=== PATIENT | male | born 1990 | race African-American/Black ===

== ENCOUNTER 2020-05-04 13:38 | Inpatient (IN) | payer MEDICAID ==
[2020-05-04] VITALS (7 sets, daily range): BP systolic 91–109; BP diastolic 53–69
[~2020-05-04] VITALS: Ht 185.4 cm; Wt 108.5 kg
[~2020-05-04 13:38] MED LIST: etomidate 2mg/ml inj. ONE; sod chloride 0.9% 10ml flush syringe IV ONE
[2020-05-04] MEDS ORDERED: MIDAZolam 5mg/ml 2ml vial IV STA (13:48)
[2020-05-04] MEDS ORDERED: propofol 1000mg/100ml bottle 100 ML IV SCH (13:49)
[2020-05-04] MEDS ORDERED: MIDAZolam inj 50 MG in normal saline 50ml IV soln 40 ML IV SCH (13:55)
--- NOTE | 2020-05-04 13:55 | NUR ---
pt arrives via gurney unresponsive by ems bvm in process, 4 of narcan was ineffective, presents hypotensive. dr moore intubated with a mac 4 blade and an 8 tube, 24 at the teeth. quad 4 central line placed
--- NOTE | 2020-05-04 13:56 | NUR ---
40 OF ETOMIDATE @1354 100 OF ROCURONIUM @1355 5MG OF VERSED WERE GIVEN FOR INTUBATION, VERSED DRIP WAS STARTED
[2020-05-04] MEDS ORDERED: midazolam 100mg in NS 100ml 100 ML IV SCH (14:05)
[2020-05-04 14:06] LABS: ABG BASE EXCESS 1.7 mmol/L (-2.0-2.0); ABG HCO3 27.7 mmol/L (22.0-26.0); ABG OXYGEN SATURATION 92.2 % (94-97); ABG PCO2 (T) 49.5 mmHg (35.0-48.0); ABG PO2 (T) 67.9 mmHg (75.0-100.0); ALLEN'S TEST POSITIVE; FCOHb 1.2 % (0.0-3.9); FLOW 15 L/min; FMetHb 0.1 % (0.0-1.5); PATIENT TEMPERATURE 37.1; TOTAL HEMOGLOBIN 13.8 G/dl (14.0-18.0)
[2020-05-04 14:29] LABS: TRIGLYCERIDES 104 MG/DL (20-135)
[2020-05-04] MEDS ORDERED: propofol 1000mg/100ml bottle 100 ML IV ONE (14:45)
--- NOTE | 2020-05-04 14:54 | NUR ---
[phone]
--- NOTE | 2020-05-04 14:55 | NUR ---
PT NOT RESPONDING TO VERSED, ORDERED PROPOFOL, PROPOFOL STARTED PER MED ORDER
[2020-05-04 14:58] LABS: CLARITY,URINE CLEAR (Clear); COLOR,URINE YELLOW (Yellow); GLUCOSE, URINE NEGATIVE (Neg); KETONES,URINE NEGATIVE (Neg); LEUKOCYTE ESTERASE ,URINE NEGATIVE (Neg); NITRITES, URINE NEGATIVE (Neg); OCCULT BLOOD,URINE TRACE-INTACT (Neg); PROTEIN,URINE 100 mg/dl (Neg)
[2020-05-04 15:03] LABS: UA COLLECTION TYPE OTHER
[2020-05-04 15:04] LABS: BACTERIA,URINE NONE SEEN /HPF (Neg); MUCUS STRANDS FEW /LPF (Neg); RBC,URINE 0-2 /HPF (0-2); SQUAMOUS EPITHELIAL CELL,UR FEW /LPF (FEW); WBC,URINE NONE SEEN /HPF (0-4)
[2020-05-04 15:05] LABS: HYALINE CASTS 0-3 /LPF (NEGATIVE)
[2020-05-04 15:11] LABS: URINE AMPHETAMINE SCREEN NEGATIVE (Neg); URINE BARBITUATE SCREEN NEGATIVE (Neg); URINE BENZODIAZEPINES SCREEN POSITIVE (Neg); URINE CANNABINOID SCREEN NEGATIVE (Neg); URINE COCAINE SCREEN NEGATIVE (Neg); URINE METHADONE SCREEN POSITIVE (Neg); URINE OPIATE SCREEN NEGATIVE (Neg); URINE PHENCYCLIDINE SCREEN NEGATIVE (Neg)
[2020-05-04] MEDS ORDERED: midazolam 100mg in NS 100ml 100 ML IV PRN (15:13)
[2020-05-04] MEDS ORDERED: FENTANYL-0.9 % NACL/PF 100 ML IV PRN (15:13)
[2020-05-04] MEDS ORDERED: midazolam 2 mg/2 ml injection IV ONE (15:15)
[2020-05-04] MEDS ORDERED: potassium Cl 20 mEq SR tablet PO PRN ×2 (15:15)
[2020-05-04] MEDS ORDERED: potassium CL 10mEq/100ml bag 100 ML IV PRN ×2 (15:15)
[2020-05-04] MEDS ORDERED: magnesium hydroxide 30ml (MOM) UD suspension PO PRN (15:15)
[2020-05-04] MEDS ORDERED: potassium Cl 20mEq/100mL bag 100 ML IV PRN (15:15)
[2020-05-04] MEDS ORDERED: fentaNYL/PF 50MCG/1 ML 2ML syringe IV PRN (15:15)
[2020-05-04] MEDS ORDERED: acetaminophen 325mg tablet PO PRN ×2 (15:15)
[2020-05-04] MEDS ORDERED: ondansetron/PF 4mg/2ml inj IV PRN (15:15)
[2020-05-04] MEDS ORDERED: LIDOcaine 2% 10ml TOPICAL JELLY (Urojet) TP ONE (15:15)
--- NOTE | 2020-05-04 15:17 | NUR ---
CALLED POISON CONTROL REFERENCE#[id number]. RECOMMENDS REPEAT EKG IN 4-6 HOURS TO CHECK FOR PROLONGED QT INTERVAL. KEEP ON CHIEF TELEPHONE OPERATOR AND REPLACE ELECTROLYTES IF NEEDED WHEN LAB RESULTS ARE IN.
[2020-05-04 15:24] LABS: BASOPHILS # (AUTO) 0.1 X10'3 (0-0.2); BASOPHILS % (AUTO) 0.3 % (0-1); EOSINOPHILS % (AUTO) 0.2 % (0-6); HEMATOCRIT 37.7 % (42.0-52.0); HEMOGLOBIN 12.4 g/dl (14.0-17.9); LYMPHOCYTES # (AUTO) 1.5 X10'3 (1.1-4.8); LYMPHOCYTES % (AUTO) 7.1 % (21-51); MEAN CORPUSCULAR HEMOGLOBIN 30.2 PG (27.0-31.0); MEAN CORPUSCULAR HGB CONC 32.9 g/dL (33.0-36.5); MEAN CORPUSCULAR VOLUME 91.9 FL (78-98); MEAN PLATELET VOLUME 8.3 FL (7.4-10.4); MONOCYTES # (AUTO) 0.8 X10'3 (0-0.9); NEUTROPHILS # (AUTO) 18.3 X10'3 (1.8-7.7); NEUTROPHILS % (AUTO) 88.4 % (42-75); PLATELET COUNT 335 X10'3 (140-440); WHITE BLOOD COUNT 20.6 X10'3 (4.5-11.0)
[2020-05-04 15:32] LABS: ALANINE AMINOTRANSFERASE 35 U/L (12-78); ALBUMIN 3.5 G/DL (3.4-5.0); ALBUMIN/GLOBULIN RATIO 0.9 (1.1-1.5); ALKALINE PHOSPHATASE 98 IU/L (46-116); ANION GAP 11 (8-16); ASPARTATE AMINO TRANSFERASE 52 U/L (10-37); BILIRUBIN,TOTAL 0.8 MG/DL (0.1-1.0); BLOOD UREA NITROGEN 16 MG/DL (7-18); BUN/CREATININE RATIO 11.9 (5.4-32.0); CALCIUM 8.5 MG/DL (8.5-10.1); CHLORIDE 97 MMOL/L (99-107); CREATININE 1.35 MG/DL (0.60-1.10); GLUCOSE 169 MG/DL (70-104); POTASSIUM 3.8 MMOL/L (3.5-5.1); SODIUM 136 MMOL/L (135-145); TOTAL CARBON DIOXIDE 27.7 MMOL/L (24-32); TOTAL PROTEIN 7.6 G/DL (6.4-8.2); eGFR 63 ML/MIN
[2020-05-04 15:34] LABS: ACETAMINOPHEN < 2.0 UG/ML (10-30); ETHANOL < 0.010 GM/DL (0.0-0.010)
[2020-05-04 15:56] LABS: OXYGEN SATURATION (MIXED VEN) 71.6 % (60-80); PO2 MIXED VENOUS (TEMP COR) 41.7 mmHg (35-46)
[2020-05-04] MEDS: normal saline 1000ml 1,000 ML IV SCH ×2 (15:58→23:28)
[2020-05-04 16:00] LABS: PLATELET ESTIMATE NORMAL; TOTAL CELLS COUNTED 100
[2020-05-04] MEDS ORDERED: acetaminophen 650mg rectal suppository RC ONE (16:00)
--- NOTE | 2020-05-04 16:34 | NUR ---
diprivan titrated up per protocol d/t pt being awake and alert
--- NOTE | 2020-05-04 16:45 | NUR ---
I have received report from Santa LOYOLA and had the opportunity to ask questions and assume patient care.
--- NOTE | 2020-05-04 18:22 | NUR ---
Patient report given, questions answered & plan of care reviewed with Sanna LOYOLA.
--- NOTE | 2020-05-04 18:30 | NUR ---
Patient in room ICU 2042. I have received report from Katty LOYOLA and had the opportunity to ask questions and assume patient care.
[2020-05-04] MEDS ORDERED: LISI10TA4 PO (19:07)
[2020-05-04] MEDS ORDERED: ZOLP10TA PO (19:07)
[2020-05-04] MEDS ORDERED: ALPR-624 PO (19:07)
[2020-05-04] MEDS: famotidine/PF 10 mg/ml inj IV SCH (19:58)
--- NOTE | 2020-05-04 21:00 | NUR ---
patient wakes up and follows commands. Assessment completed. Will continue to monitor closely.
[2020-05-05] VITALS (23 sets, daily range): BP systolic 99–133; BP diastolic 50–75
[2020-05-05 03:09] LABS: BASOPHILS % (AUTO) 0.3 % (0-1); EOSINOPHILS # (AUTO) 0.1 X10'3 (0-0.9); HEMATOCRIT 32.2 % (42.0-52.0); HEMOGLOBIN 10.7 g/dl (14.0-17.9); LYMPHOCYTES # (AUTO) 1.8 X10'3 (1.1-4.8); LYMPHOCYTES % (AUTO) 17.8 % (21-51); MEAN CORPUSCULAR HEMOGLOBIN 30.5 PG (27.0-31.0); MEAN CORPUSCULAR HGB CONC 33.3 g/dL (33.0-36.5); MEAN CORPUSCULAR VOLUME 91.4 FL (78-98); MEAN PLATELET VOLUME 7.6 FL (7.4-10.4); MONOCYTES # (AUTO) 0.7 X10'3 (0-0.9); NEUTROPHILS # (AUTO) 7.6 X10'3 (1.8-7.7); NEUTROPHILS % (AUTO) 73.9 % (42-75); PLATELET COUNT 275 X10'3 (140-440); RED BLOOD COUNT 3.52 X10'6 (4.70-6.10); WHITE BLOOD COUNT 10.3 X10'3 (4.5-11.0)
[2020-05-05 03:35] LABS: ALANINE AMINOTRANSFERASE 35 U/L (12-78); ALBUMIN 2.8 G/DL (3.4-5.0); ALBUMIN/GLOBULIN RATIO 0.8 (1.1-1.5); ALKALINE PHOSPHATASE 75 IU/L (46-116); ANION GAP 5 (8-16); ASPARTATE AMINO TRANSFERASE 60 U/L (10-37); BILIRUBIN,TOTAL 0.7 MG/DL (0.1-1.0); BLOOD UREA NITROGEN 15 MG/DL (7-18); BUN/CREATININE RATIO 13.9 (5.4-32.0); CALCIUM 7.7 MG/DL (8.5-10.1); CHLORIDE 104 MMOL/L (99-107); CREATININE 1.08 MG/DL (0.60-1.10); GLUCOSE 96 MG/DL (70-104); MAGNESIUM 1.9 MG/DL (1.5-2.4); PHOSPHORUS 3.1 MG/DL (2.3-4.5); POTASSIUM 3.3 MMOL/L (3.5-5.1); SODIUM 138 MMOL/L (135-145); TOTAL PROTEIN 6.3 G/DL (6.4-8.2); TRIGLYCERIDES 80 MG/DL (20-135); eGFR 81 ML/MIN
[2020-05-05 03:41] LABS: ABG BASE EXCESS 4.4 mmol/L (-2.0-2.0); ABG HCO3 28.4 mmol/L (22.0-26.0); ABG PCO2 (T) 39.7 mmHg (35.0-48.0); ABG PO2 (T) 73.1 mmHg (75.0-100.0); ALLEN'S TEST POSITIVE; FCOHb 0.3 % (0.0-3.9); FMetHb 0.1 % (0.0-1.5); FO2Hb 94.6 % (94-97); PATIENT TEMPERATURE 36.8; RESPIRATORY RATE 18 b/min; TIDAL VOLUME 500 mL; TOTAL HEMOGLOBIN 11.5 G/dl (14.0-18.0)
[2020-05-05] MEDS: potassium Cl 20mEq/100mL bag 100 ML IV PRN ×2 (04:16→05:35)
--- NOTE | 2020-05-05 06:40 | NUR ---
Problems reprioritized. Patient report given, questions answered & plan of care reviewed with Kim LOYOLA.
[2020-05-05] MEDS ORDERED: enoxaparin 40mg/0.4ml syringe SUBCUT SCH (08:00)
[2020-05-05] MEDS: normal saline 1000ml 1,000 ML IV SCH ×3 (08:50→23:13)
--- NOTE | 2020-05-05 08:51 | NUR ---
Able to communicate with patient via white board, he was able to ask and answer questions appropriately. Discussed the plan of care with the patient and he agreed, denied any complaints. Question about the events surrounding his overdose. States he has no idea what happened and that he cant remember what happened before that. What questioned whether he had suicidal intent he wrote "I would never commit suicide" and shook head intensely. Asked about his cell phone and whether his mom has been in to see him.
--- NOTE | 2020-05-05 09:04 | NUR ---
Rec call from poison control, reviewed labs and vital signs. Recommended to check CK and recheck LFT's.
[2020-05-05] MEDS: famotidine/PF 10 mg/ml inj IV SCH (09:08)
[2020-05-05] MEDS ORDERED: ipratropium/albuterol 3ml nebule NEB PRN (09:50)
[2020-05-05] MEDS ORDERED: racepinephrine 11.25mg/0.5ml nebule NEB PRN (09:50)
--- NOTE | 2020-05-05 10:50 | NUR ---
Patient extubated at 1015 to 3 liters n/c. Doing well, O2 sats 97-98%. Alert and oriented, states his throat is sore. Dr King requesting patient be seen by social insurance adviser. Placed on [id number] by . [facility] contacted and they requested packet.
[2020-05-05] MEDS: ipratropium/albuterol 3ml nebule NEB SCH ×2 (15:00→20:28)
[2020-05-05] MEDS ORDERED: famotidine 10mg tablet PO SCH (20:00)
[2020-05-05] MEDS: mineral oil/petrolatum ophthal oint EACHEYE SCH (20:00)
[2020-05-06] VITALS (10 sets, daily range): BP systolic 112–137; BP diastolic 58–84
[2020-05-06] MEDS: normal saline 1000ml 1,000 ML IV SCH (00:55)
[2020-05-06] MEDS: mineral oil/petrolatum ophthal oint EACHEYE SCH (02:00)
[2020-05-06] MEDS: ipratropium/albuterol 3ml nebule NEB SCH ×2 (03:00→08:47)
[2020-05-06 03:05] LABS: BASOPHILS # (AUTO) 0.1 X10'3 (0-0.2); BASOPHILS % (AUTO) 1.1 % (0-1); EOSINOPHILS # (AUTO) 0.4 X10'3 (0-0.9); EOSINOPHILS % (AUTO) 4.2 % (0-6); HEMATOCRIT 32.3 % (42.0-52.0); HEMOGLOBIN 10.6 g/dl (14.0-17.9); LYMPHOCYTES # (AUTO) 2.4 X10'3 (1.1-4.8); MEAN CORPUSCULAR HEMOGLOBIN 30.4 PG (27.0-31.0); MEAN CORPUSCULAR HGB CONC 32.8 g/dL (33.0-36.5); MEAN CORPUSCULAR VOLUME 92.6 FL (78-98); MEAN PLATELET VOLUME 7.8 FL (7.4-10.4); MONOCYTES # (AUTO) 0.5 X10'3 (0-0.9); MONOCYTES % (AUTO) 5.3 % (2-12); NEUTROPHILS # (AUTO) 6.1 X10'3 (1.8-7.7); NEUTROPHILS % (AUTO) 64.4 % (42-75); PLATELET COUNT 273 X10'3 (140-440); RED BLOOD COUNT 3.49 X10'6 (4.70-6.10); RED CELL DISTRIBUTION WIDTH 12.9 % (11.5-14.5); WHITE BLOOD COUNT 9.5 X10'3 (4.5-11.0)
[2020-05-06 03:21] LABS: ALANINE AMINOTRANSFERASE 49 U/L (12-78); ALBUMIN 2.6 G/DL (3.4-5.0); ALBUMIN/GLOBULIN RATIO 0.7 (1.1-1.5); ALKALINE PHOSPHATASE 73 IU/L (46-116); ANION GAP 3 (8-16); ASPARTATE AMINO TRANSFERASE 82 U/L (10-37); BILIRUBIN,TOTAL 0.2 MG/DL (0.1-1.0); BLOOD UREA NITROGEN 8 MG/DL (7-18); BUN/CREATININE RATIO 9.5 (5.4-32.0); CALCIUM 7.6 MG/DL (8.5-10.1); CHLORIDE 107 MMOL/L (99-107); CREATININE 0.84 MG/DL (0.60-1.10); GLUCOSE 83 MG/DL (70-104); MAGNESIUM 2.2 MG/DL (1.5-2.4); PHOSPHORUS 3.5 MG/DL (2.3-4.5); POTASSIUM 3.8 MMOL/L (3.5-5.1); SODIUM 139 MMOL/L (135-145); TOTAL CARBON DIOXIDE 28.6 MMOL/L (24-32); TOTAL PROTEIN 6.2 G/DL (6.4-8.2); eGFR > 90 ML/MIN
--- NOTE | 2020-05-06 06:24 | NUR ---
Problems reprioritized. Patient report given, questions answered & plan of care reviewed with MILLA Alvarez.
[2020-05-06] MEDS ORDERED: LEVO500T2 PO (09:34)
[2020-05-06] MEDS ORDERED: levoFLOXACIN 500mg tablet PO ONE (09:40)
[2020-05-06] MEDS ORDERED: morphine 4 MG/ML inj SYRINge IV ONE (09:40)
== END 2020-05-06 13:58 | disposition home or self-care (01) | DRG 812 ==
LOC: ER 13:39 → ED HOLD 15:13 → EDBEDREQ 15:58 → ICU 2S 16:45
PROVIDERS: ADMIT Internal Medicine Critical Care Medicine; ATTEND Internal Medicine Critical Care Medicine
PROC: 5A1935Z Respiratory Ventilation, Less than 24 Consecutive Hours (ICD-10-PCS; principal; 2020-05-04)
PROC: 0BH17EZ Insertion of Endotracheal Airway into Trachea, Via Natural or Artificial Opening (ICD-10-PCS; 2020-05-04)
PROC: 0D9670Z Drainage of Stomach with Drainage Device, Via Natural or Artificial Opening (ICD-10-PCS; 2020-05-04)
PROC: 02HV33Z Insertion of Infusion Device into Superior Vena Cava, Percutaneous Approach (ICD-10-PCS; 2020-05-04)
PROC: B548ZZA Ultrasonography of Superior Vena Cava, Guidance (ICD-10-PCS; 2020-05-04)
DX: T42.4X1A Poisoning by benzodiazepines, accidental (unintentional), initial encounter (principal); E87.4 Mixed disorder of acid-base balance; I10 Essential (primary) hypertension; J69.0 Pneumonitis due to inhalation of food and vomit; E86.0 Dehydration; J96.00 Acute respiratory failure, unspecified whether with hypoxia or hypercapnia; N17.9 Acute kidney failure, unspecified; F41.9 Anxiety disorder, unspecified; R73.9 Hyperglycemia, unspecified; T40.3X1A Poisoning by methadone, accidental (unintentional), initial encounter; T42.6X1A Poisoning by other antiepileptic and sedative-hypnotic drugs, accidental (unintentional), initial encounter; T46.4X1A Poisoning by angiotensin-converting-enzyme inhibitors, accidental (unintentional), initial encounter; Y92.89 Other specified places as the place of occurrence of the external cause; Z79.899 Other long term (current) drug therapy
CPT/HCPCS: 31500; 36415; 36556; 36600; 71045; 80053; 80305; 80320; 80329; 81001; 82803; 82810; 82948; 83735; 84100; 84443; 84478; 85007; 85018; 85025; 87070; 87081; 93005; 94002; 94003; 94640; 94760; 97116; 97161; 97530; 99291; G0378; J1650; J2250; J2704; J3010; J3480; J3490; J7030

== ENCOUNTER 2021-02-05 09:39 | Emergency (ER) | payer MEDICAID ==
[~2021-02-05] VITALS: Ht 182.9 cm; Wt 103.0 kg
[~2021-02-05 09:39] MED LIST changes: +ALPR-624 PO; +LISI10TA27 PO; +ZOLP10TA PO; -etomidate 2mg/ml inj. ONE; -sod chloride 0.9% 10ml flush syringe IV ONE
[2021-02-05 09:57] VITALS: BP 128/86
[2021-02-05] MEDS ORDERED: HYDROcodone/acetaminophen 5mg/325mg tablet PO ONE (11:10)
== END 2021-02-05 12:07 | disposition home or self-care (01) ==
LOC: ER 09:40
DX: S52.121A Displaced fracture of head of right radius, initial encounter for closed fracture (principal); M79.601 Pain in right arm; M79.604 Pain in right leg; Z79.899 Other long term (current) drug therapy; W10.9XXA Fall (on) (from) unspecified stairs and steps, initial encounter; Y93.89 Activity, other specified; Y92.89 Other specified places as the place of occurrence of the external cause; Y99.8 Other external cause status
CPT/HCPCS: 29105; 73060; 73090; 99284